=== PATIENT | female | born 1985 | race Caucasian/White ===

== ENCOUNTER 2019-07-01 10:05 | Emergency (ER) | payer MEDICARE ==
[~2019-07-01] VITALS: Ht 165.1 cm; Wt 104.5 kg
[2019-07-01 10:11] VITALS: BP 139/70; Ht 165.1 cm; Wt 104.5 kg
[2019-07-01] MEDS ORDERED: TOPAMAX200 MG PO (10:14)
[2019-07-01] MEDS ORDERED: LYRICA150 MG PO (10:15)
[2019-07-01] MEDS ORDERED: IBUPROFEN800 MG PO (10:15)
[2019-07-01] MEDS ORDERED: VIMPAT100 MG PO (10:15)
[2019-07-01] MEDS ORDERED: CELEXA40 MG PO (10:16)
[2019-07-01] MEDS ORDERED: VITAMIN D10000 UNI1 PO (10:16)
[2019-07-01] MEDS ORDERED: ASPIRIN81 MG PO (10:17)
[2019-07-01] MEDS ORDERED: HYDROCODONE-IB1 EAC3 PO (10:17)
[2019-07-01] MEDS ORDERED: ELAVIL10 MG PO (11:15)
== END 2019-07-01 12:09 | disposition home or self-care (01) ==
LOC: D.ER 10:05
DX: G43.909 Migraine, unspecified, not intractable, without status migrainosus (principal); F32.9 Major depressive disorder, single episode, unspecified; Z86.73 Personal history of transient ischemic attack (TIA), and cerebral infarction without residual deficits